=== PATIENT | male | born 1950 | race Caucasian/White ===

== ENCOUNTER 2017-02-07 05:40 | Emergency (ER) | payer OTHER ==
--- NOTE | 2017-02-07 06:09 | Emergency Department Record ---
History of Present Illness - General Chief Complaint: Fall Injury Stated Complaint: FALL Time Seen by Provider: 02/07/17 05:58 Source: Patient, EMS Mode of Arrival: EMS Limitations: No limitations - History of Present Illness Initial Comments: pt lost balance and fell hitting head and injuring l hand. 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 sided deficits Complaint: Fall Onset/Timin -: Minutes(s) Fall From: Standing When Fall Occurred: Just prior to arrival Fall Witnessed: Yes, by family Place Fall Occurred: Home Loss of Consciousness: None Prolonged Down Time?: No Symptoms Prior to Fall: None Location: Head Location - Extremities: Left: Hand Severity: Moderate Severity scale (1-10): 7 Quality: Aching Context: History of frequent falls, Tripped/slipped - [place] Coma Scale Eye Response: (4) Open spontaneously Motor Response: (6) Obeys commands Verbal Response: (5) Oriented [place] Total: 15 - Related Data Home Medications Medication Instructions Recorded Confirmed Last Taken Baclofen 10 mg PO TID 11/06/15 02/07/17 1 Day Ago Carvedilol [Coreg] 12.5 mg PO BID 11/06/15 02/07/17 1 Day Ago Furosemide [Lasix] 20 mg PO DAILY 11/06/15 02/07/17 1 Day Ago Melatonin 5 mg PO QHS 11/06/15 02/07/17 1 Day Ago Omeprazole 40 mg PO BID 11/06/15 02/07/17 1 Day Ago Simvastatin [Zocor] 40 mg PO QHS 11/06/15 02/07/17 1 Day Ago Trazodone HCl 100 mg PO QHS PRN 11/06/15 02/07/17 1 Day Ago Cholecalciferol (Vitamin D3) 1,000 udcap PO DAILY 12/22/15 02/07/17 1 Day Ago [Vitamin D] Multivitamin [Daily Multiple 1 tab PO DAILY 12/22/15 02/07/17 1 Day Ago Vitamin] Spironolactone [Aldactone] 25 mg PO DAILY 12/22/15 02/07/17 1 Day Ago Meclizine HCl [Antivert] 12.5 mg PO TID 06/30/16 02/07/17 1 Day Ago Enoxaparin Sodium [Lovenox] 150 mg SQ DAILY 01/28/17 02/07/17 1 Day Ago Allergies Allergy/AdvReac Type Severity Reaction Status Date / Time NO KNOWN DRUG ALLERGY Allergy HYPERSENSIT Uncoded 01/28/17 08:47 IVITY Travel Screening - Travel/Exposure Within Last 30 Days Have you traveled within the last 30 days?: No Review of Systems Reviewed: No additional complaints except as noted below Constitutional: Reports: As per HPI. Denies: Chills, Fever, Malaise, Night sweats, Weakness, Weight change Eyes: Reports: As per HPI. Denies: Eye discharge, Eye pain, Photophobia, Vision change ENT: Reports: As per HPI. Denies: Congestion, Dental pain, Ear pain, Epistaxis , Hearing loss, Throat pain Respiratory: Reports: As per HPI. Denies: Cough, Dyspnea, Hemoptysis, Stridor, Wheezes Cardiovascular: Reports: As per HPI. Denies: Arrhythmia, Chest pain, Dyspnea on exertion, Edema, Murmurs, Orthopnea, Palpitations, Paroxysmal nocturnal dyspnea, Rheumatic Fever, Syncope Endocrine: Reports: As per HPI. Denies: Fatigue, Heat or cold intolerance, Polydipsia, Polyuria Gastrointestinal: Reports: As per HPI. Denies: Abdominal pain, Constipation, Diarrhea, Hematemesis, Hematochezia, Melena, Nausea, Vomiting Genitourinary: Reports: As per HPI. Denies: Dysuria, Frequency, Hematuria, Incontinence, Retention, Testicular pain, Testicular mass, Urgency Musculoskeletal: Reports: As per HPI. Denies: Arthralgia, Back pain, Gout, Joint swelling, Myalgia, Neck pain Skin: Reports: As per HPI. Denies: Bruising, Change in color, Change in hair/ nails, Lesions, Pruritus, Rash Neurological: Reports: As per HPI. Denies: Abnormal gait, Confusion, Headache, Numbness, Paresthesias, Seizure, Tingling, Tremors, Vertigo, Weakness Psychiatric: Reports: As per HPI. Denies: Anxiety, Auditory hallucinations, Depression, Homicidal thoughts, Suicidal thoughts, Visual hallucinations Hematological/Lymphatic: Reports: As per HPI. 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 - GI Hx GI Disorders: Yes Hx GI Bleed: Yes (esophageal) Comment:: esopageal varicies - Hx Genitourinary Disorders: No - ENDOCRINE Hx Endocrine Disorders: No - MUSCULOSKELETAL Hx Musculoskeletal Disorders: No - PSYCH Hx Psych Problems: No - HEMATOLOGY/ONCOLOGY Hx Hematology/Oncology Disorders: No Family Medical History Any Significant Family History?: No Physical Exam - General General Appearance: Alert, Oriented x3, Cooperative, Mild distress - Head Head exam: Normal inspection Head exam detail: Abrasion, Contusion, Laceration - Eye Eye exam: Normal appearance, PERRL, EOMI Pupils: Normal accommodation - ENT ENT exam: Normal exam, Mucous membranes moist, Normal external ear exam, Normal orophraynx Ear exam: Normal external inspection. negative: External canal tenderness Nasal Exam: Normal inspection. negative: Discharge, Sinus tenderness Mouth exam: Normal external inspection, Tongue normal Teeth exam: Normal inspection. negative: Dental caries Throat exam: Normal inspection. negative: Tonsillar erythema, Tonsillar exudate - Neck Neck exam: Normal inspection, Full ROM. negative: Tenderness - Respiratory Respiratory exam: Normal lung sounds bilaterally. negative: Respiratory distress - Cardiovascular Cardiovascular Exam: Regular rate, Normal rhythm, Normal heart sounds - GI/Abdominal GI/Abdominal exam: Soft, Normal bowel sounds. negative: Tenderness - Rectal Rectal exam: Deferred - exam: Deferred - Extremities Extremities exam: Normal inspection, Normal capillary refill, Tenderness. negative: Full ROM Image of Full Body: 1 - tender w 2 small lacs 2 - skin tears, tender, swelling, ecchymosis - Back Back exam: Reports: Normal inspection, Full ROM. Denies: Muscle spasm, Rash noted, Tenderness - Neurological Neurological exam: Alert, CN II-XII intact, Oriented X3, Other (residual l sided deficits). negative: Normal gait - Psychiatric Psychiatric exam: Normal affect, Normal mood - Skin Skin exam: Dry, Intact, Normal color, Warm Course Vital Signs 02/07/17 05:44 Temperature 97.8 F Pulse Rate 67 Respiratory 18 Rate Blood Pressure 127/73 Pulse Ox 97 - Reevaluation(s) Reevaluation #1: 02/07/17 06:56 care being assumed by dr hernandez Medical Decision Making - Lab Data Result diagrams: 02/07/17 06:30 02/07/17 06:30 Disposition Forms: Patient Portal Access
[2017-02-07 07:01] LABS: EOS % 2.7 % (0-6); GRAN % 47.2 % (47-80); HEMATOCRIT 40.1 % (42.0-52.0); HEMOGLOBIN 14.3 gm/dl (14.0-18.0); LYMPH % 34.7 % (16-45); MEAN CELL VOLUME 102.3 fl (81-97); MEAN CORPUSCULAR HGB CONC 35.7 g/dl (32-36); MONO % 14.4 % (0-9); PLATELET COUNT 91 K/uL (130-400); RED BLOOD COUNT 3.92 M/uL (4.40-5.70); RED CELL DISTRIBUTION WIDTH 16.1 % (11.5-14.5); WHITE BLOOD COUNT W/O DIFF 6.2 K/uL (4.2-12.2)
[2017-02-07 07:02] LABS: MEAN CORPUSCULAR HEMOGLOBIN 36.4 pg (27-33)
--- NOTE | 2017-02-07 07:11 | Emergency Department Record ---
History of Present Illness - General Chief Complaint: Fall Injury Stated Complaint: FALL Time Seen by Provider: 02/07/17 05:58 Source: Patient, EMS, RN notes reviewed Mode of Arrival: EMS - History of Present Illness Initial Comments: report from Dr. Uribe and reviewed the chart and labs and CT scans and waiting for readings from radiologist. Examined patient and he said he fell and hit his head on a dresser and has two lacerations on the left side of forehead. No LOC and no vomiting and drinking Vodka last night. He had a previous stroke 5 years ago and has paralysis on the left side partial and able to stand with assistance. MD Complaint: Fall Onset/Timin -: Minutes(s) Fall From: Standing When Fall Occurred: Just prior to arrival Fall Witnessed: Yes, by family Place Fall Occurred: Home Loss of Consciousness: None Prolonged Down Time?: No Symptoms Prior to Fall: None Location: Head Location - Extremities: Left: Hand Severity: Moderate Severity scale (1-10): 7 Quality: Aching Context: History of frequent falls, Tripped/slipped - [place]y Coma Scale Eye Response: (4) Open spontaneously Motor Response: (6) Obeys commands Verbal Response: (5) Oriented [place] Total: 15 - Related Data Home Medications Medication Instructions Recorded Confirmed Last Taken Baclofen 10 mg PO TID 11/06/15 02/07/17 1 Day Ago Carvedilol [Coreg] 12.5 mg PO BID 11/06/15 02/07/17 1 Day Ago Furosemide [Lasix] 20 mg PO DAILY 11/06/15 02/07/17 1 Day Ago Melatonin 5 mg PO QHS 11/06/15 02/07/17 1 Day Ago Omeprazole 40 mg PO BID 11/06/15 02/07/17 1 Day Ago Simvastatin [Zocor] 40 mg PO QHS 11/06/15 02/07/17 1 Day Ago Trazodone HCl 100 mg PO QHS PRN 11/06/15 02/07/17 1 Day Ago Cholecalciferol (Vitamin D3) 1,000 udcap PO DAILY 12/22/15 02/07/17 1 Day Ago [Vitamin D] Multivitamin [Daily Multiple 1 tab PO DAILY 12/22/15 02/07/17 1 Day Ago Vitamin] Spironolactone [Aldactone] 25 mg PO DAILY 12/22/15 02/07/17 1 Day Ago Meclizine HCl [Antivert] 12.5 mg PO TID 06/30/16 02/07/17 1 Day Ago Enoxaparin Sodium [Lovenox] 150 mg SQ DAILY 01/28/17 02/07/17 1 Day Ago Allergies Allergy/AdvReac Type Severity Reaction Status Date / Time NO KNOWN DRUG ALLERGY Allergy HYPERSENSIT Uncoded 01/28/17 08:47 IVITY Travel Screening - Travel/Exposure Within Last 30 Days Have you traveled within the last 30 days?: No Review of Systems Constitutional: Reports: As per HPI. Denies: Chills, Fever, Malaise, Night sweats, Weakness, Weight change Eyes: Reports: As per HPI. Denies: Eye discharge, Eye pain, Photophobia, Vision change ENT: Reports: As per HPI. Denies: Congestion, Dental pain, Ear pain, Epistaxis , Hearing loss, Throat pain Respiratory: Reports: As per HPI. Denies: Cough, Dyspnea, Hemoptysis, Stridor, Wheezes Cardiovascular: Reports: As per HPI. Denies: Arrhythmia, Chest pain, Dyspnea on exertion, Edema, Murmurs, Orthopnea, Palpitations, Paroxysmal nocturnal dyspnea, Rheumatic Fever, Syncope Endocrine: Reports: As per HPI. Denies: Fatigue, Heat or cold intolerance, Polydipsia, Polyuria Gastrointestinal: Reports: As per HPI. Denies: Abdominal pain, Constipation, Diarrhea, Hematemesis, Hematochezia, Melena, Nausea, Vomiting Genitourinary: Reports: As per HPI. Denies: Dysuria, Frequency, Hematuria, Incontinence, Retention, Testicular pain, Testicular mass, Urgency Musculoskeletal: Reports: As per HPI, Neck pain. Denies: Arthralgia, Back pain , Gout, Joint swelling, Myalgia Skin: Reports: As per HPI, Other (two lacerations one is 5 cm and the other is 3 cm left forehead and scalp area). Denies: Bruising, Change in color, Change in hair/nails, Lesions, Pruritus, Rash Neurological: Reports: As per HPI. Denies: Abnormal gait, Confusion, Headache, Numbness, Paresthesias, Seizure, Tingling, Tremors, Vertigo, Weakness Psychiatric: Reports: As per HPI. Denies: Anxiety, Auditory hallucinations, Depression, Homicidal thoughts, Suicidal thoughts, Visual hallucinations Hematological/Lymphatic: Reports: As per HPI. 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 - GI Hx GI Disorders: Yes Hx GI Bleed: Yes (esophageal) Comment:: esopageal varicies - Hx Genitourinary Disorders: No - ENDOCRINE Hx Endocrine Disorders: No - MUSCULOSKELETAL Hx Musculoskeletal Disorders: No - PSYCH Hx Psych Problems: No - HEMATOLOGY/ONCOLOGY Hx Hematology/Oncology Disorders: No Family Medical History Any Significant Family History?: No Physical Exam - General General Appearance: Alert, Oriented x3, Cooperative, No acute distress, Other ( slight slurred speech and could be from the CVA or alcohol) Limitations: No limitations - Head Head exam: Normal inspection - Eye Eye exam: Normal appearance, PERRL Pupils: Normal accommodation - ENT ENT exam: Normal exam, Mucous membranes moist, Normal external ear exam, Normal orophraynx, TM's normal bilaterally Ear exam: Normal external inspection. negative: External canal tenderness Nasal Exam: Normal inspection. negative: Discharge, Sinus tenderness Mouth exam: Normal external inspection, Tongue normal Teeth exam: Normal inspection. negative: Dental caries Throat exam: Normal inspection. negative: Tonsillar erythema, Tonsillar exudate - Neck Neck exam: Normal inspection, Full ROM. negative: Tenderness - Respiratory Respiratory exam: Normal lung sounds bilaterally. negative: Respiratory distress - Cardiovascular Cardiovascular Exam: Regular rate, Normal rhythm, Normal heart sounds - GI/Abdominal GI/Abdominal exam: Soft, Normal bowel sounds. negative: Tenderness - Rectal Rectal exam: Deferred - exam: Deferred - Extremities Extremities exam: Normal inspection, Full ROM, Normal capillary refill. negative: Tenderness - Back Back exam: Reports: Normal inspection, Full ROM. Denies: Muscle spasm, Rash noted, Tenderness - Neurological Neurological exam: Abnormal gait (from his CVA), Alert, Motor sensory deficit ( old left side), Oriented X3, Reflexes normal - Psychiatric Psychiatric exam: Normal affect, Normal mood - Skin Skin exam: Dry, Intact, Normal color, Warm, Other (two lacerations left side of face) Course Vital Signs 02/07/17 05:44 Temperature 97.8 F Pulse Rate 67 Respiratory 18 Rate Blood Pressure 127/73 Pulse Ox 97 - Reevaluation(s) Reevaluation #1: laceration repair and 3 cm laceration repaired with 5 sutures and the 5 cm repaired with three sutures. cleaned with shurclens and irrigated anesthesized with 1% lidocaine with epi 02/07/17 08:18 Medical Decision Making - Data Complexity MDM Data: Labs Ordered and/or Reviewed (alcohol 0.078), X-Ray Ordered and/or Reviewed (CT neck neg, CT head neg, left hand xray neg and his injury is in the left parietal area of skull) - Lab Data Result diagrams: 02/07/17 06:30 02/07/17 06:30 Lab Results 02/07/17 Range/Units 06:30 WBC 6.2 (4.2-12.2) K/uL RBC 3.92 L (4.40-5.70) M/uL Hgb 14.3 (14.0-18.0) gm/dl Hct 40.1 L (42.0-52.0) % MCV 102.3 H (81-97) fl MCH 36.4 H (27-33) pg MCHC 35.7 (32-36) g/dl RDW 16.1 H (11.5-14.5) % Plt Count 91 L (130-400) K/uL MPV 13.0 H (7.4-10.4) fl Gran % 47.2 (47-80) % Lymphocytes % 34.7 (16-45) % Monocytes % 14.4 H (0-9) % Eosinophils % 2.7 (0-6) % Basophils % 1.0 (0-6) % Disposition Clinical Impression: Laceration of face Qualifiers: Encounter type: initial encounter Qualified Code(s): S01.81XA - Laceration without foreign body of other part of head, initial encounter Laceration of scalp Qualifiers: Encounter type: initial encounter Qualified Code(s): S01.01XA - Laceration without foreign body of scalp, initial encounter Head contusion Qualifiers: Encounter type: initial encounter Contusion of head detail: scalp Qualified Code(s): S00.03XA - Contusion of scalp, initial encounter Contusion, hand Qualifiers: Encounter type: initial encounter Laterality: left Qualified Code(s): S60.222A - Contusion of left hand, initial encounter Disposition: Home, Self-Care Condition: (1) Good Instructions: Minor Head Injury (ED), Laceration (ED) Additional Instructions: remove sutures in 7 days wound care Forms: Patient Portal Access Time of Disposition: 08:46
[2017-02-07 07:13] LABS: ALB/GLOB RATIO 0.8 (1.1-1.8); ALBUMIN 3.7 gm/dL (3.5-5.0); ALCOHOL 0.078 g/dL (0-0.010); ALKALINE PHOSPHATASE 260 U/L (38-126); ALT/SGPT 31 U/L (21-72); ANION GAP 8.5 (7-16); AST/SGOT 49 U/L (17-59); BILIRUBIN,TOTAL 2.02 mg/dL (0.2-1.3); BLOOD UREA NITROGEN 10 mg/dL (9-20); CARBON DIOXIDE 20.5 mmol/L (22-30); CREATININE 0.7 mg/dL (0.66-1.25); EST GLOMERULAR FILTRATION RATE > 60 ml/min; GLUCOSE,RANDOM 85 mg/dL (70-110); TOTAL PROTEIN 8.2 gm/dL (6.3-8.2)
[2017-02-07 07:14] LABS: INR 1.19; PARTIAL THROMBOPLASTIN TIME 39.2 SECONDS (24.5-39.1); PROTHROMBIN TIME (PATIENT) 13.5 SECONDS (9.5-12.1)
--- NOTE | 2017-02-08 15:12 | CT SCAN REPORT ---
EXAM: HEAD CT WITHOUT CONTRAST HISTORY: FALL, BLUNT TRAUMA, CONTUSION, HEMATOMA. HITTING RIGHT PARIETAL AREA ON EDGE OF DRESSER. NO LOSS OF CONSCIOUSNESS. TECHNIQUE: Contiguous axial images from the cerebral convexities to the foramen magnum were obtained without contrast. Comparison: Head CT 01/28/17. Encounter: Initial. FINDINGS: Moderate generalized atrophy of the brain. Encephalomalacia in the paramedian right frontal and parietal lobe consistent with remote infarct. Encephalomalacia involving the high left frontal cortex consistent with remote infarct. No acute intracranial hemorrhage, mass effect, or midline shift. No CT evidence of acute large territorial infarct. The ventricles and basal cisterns are preserved. Mild soft tissue swelling right frontal scalp. No fractures. The paranasal sinuses are unremarkable. IMPRESSION: 1. NO ACUTE INTRACRANIAL PROCESS. 2. 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 JOB NUMBER: [id number] MTDD
--- NOTE | 2017-02-09 07:55 | RADIOLOGY REPORT ---
EXAM: LEFT HAND, THREE VIEWS HISTORY: FALL, LACERATION PROXIMAL LEFT HAND. TECHNIQUE: Three views of the left hand were obtained. Comparison: Left hand radiograph 04/16/13. FINDINGS: Osteopenia. No acute fracture or radiodense foreign body. Moderate severe osteoarthritic change at the left first carpal metacarpal joint. Mild soft tissue swelling dorsal left hand. IMPRESSION: 1. NO ACUTE FRACTURE OR RADIODENSE FOREIGN BODY OF THE LEFT HAND. 2. OSTEOPENIA. 3. MODERATE TO SEVERE ARTHRITIC CHANGE LEFT FIRST CARPAL METACARPAL JOINT. JOB NUMBER: [id number] MTDD
--- NOTE | 2017-02-09 08:24 | CT SCAN REPORT ---
EXAM: CERVICAL SPINE CT WITH TWO DIMENSIONAL REFORMATS HISTORY: FELL FROM STANDING POSITION, HIT RIGHT PARIETAL AREA ON DRESSER, NECK PAIN. TECHNIQUE: Contiguous axial images from the skull base to the T2 level were obtained without contrast. Sagittal and coronal two dimensional reformatted images were obtained for better anatomic delineation. Comparison: CT of the cervical spine 01/28/17. Encounter: Initial. FINDINGS: Anatomic alignment of the cervical spine. The C1-C2 articulation appears appropriate and the odontoid is intact. No acute fracture or subluxation. Mild to moderate degenerative disk disease at C6-C7 manifested by disk space narrowing and small end plate osteophytes. Minimal disk disease at the remaining levels. No narrowing of the osseous central canal at any level. Facet and uncovertebral joint hypertrophy at multiple levels with neural foraminal stenosis most pronounced at C3-C4 where there is moderate bilateral neural foraminal stenosis. The soft tissues of the cervical region are unremarkable. Biapical emphysematous change as well as scarring within the lungs. IMPRESSION: 1. NO ACUTE FRACTURE OR SUBLUXATION OF THE CERVICAL SPINE. 2. MULTILEVEL DEGENERATIVE DISK DISEASE MOST PROMINENT AT C6-C7. 3. NEURAL FORAMINAL STENOSIS MOST PRONOUNCED AT C3-C4. JOB NUMBER: [id number] [facility]
== END 2017-02-07 09:09 | disposition home or self-care (01) ==
LOC: ER 05:40
DX: S01.01XA Laceration without foreign body of scalp, initial encounter (principal); S01.81XA Laceration without foreign body of other part of head, initial encounter; S60.222A Contusion of left hand, initial encounter; W01.190A Fall on same level from slipping, tripping and stumbling with subsequent striking against furniture, initial encounter; Y92.009 Unspecified place in unspecified non-institutional (private) residence as the place of occurrence of the external cause; I69.954 Hemiplegia and hemiparesis following unspecified cerebrovascular disease affecting left non-dominant side; I10 Essential (primary) hypertension; F17.200 Nicotine dependence, unspecified, uncomplicated; Z91.81 History of falling; Z79.899 Other long term (current) drug therapy
CPT/HCPCS: 12002; 12013; 70450; 72125; 80053; 80320; 85025; 85610; 85730; 99283; 99284

== ENCOUNTER 2017-02-14 10:22 | Emergency (ER) | payer OTHER ==
--- NOTE | 2017-02-14 11:09 | Emergency Department Record ---
History of Present Illness - General Chief Complaint: Suture removal Stated Complaint: SUTURE REMOVAL Time Seen by Provider: 02/14/17 10:25 Source: Patient - History of Present Illness Initial Comments: two lacerations on the head are healing nicely and no signs of infection. The left hand is still swollen and very bruised and I am concerned it may be getting infected. reviewed xray and neg for fracture or FB Onset/Timin -: Week(s) Initial Visit For: Laceration Returns Today for: Staple/stitch removal, Wound recheck Symptoms Since Prior Visit: Worsening swelling Associated Symptoms: None - Related Data Home Medications Medication Instructions Recorded Confirmed Last Taken Baclofen 10 mg PO TID 11/06/15 02/14/17 1 Day Ago Carvedilol [Coreg] 12.5 mg PO BID 11/06/15 02/14/17 1 Day Ago Furosemide [Lasix] 20 mg PO DAILY 11/06/15 02/14/17 1 Day Ago Melatonin 5 mg PO QHS 11/06/15 02/14/17 1 Day Ago Omeprazole 40 mg PO BID 11/06/15 02/14/17 1 Day Ago Simvastatin [Zocor] 40 mg PO QHS 11/06/15 02/14/17 1 Day Ago Trazodone HCl 100 mg PO QHS PRN 11/06/15 02/14/17 1 Day Ago Cholecalciferol (Vitamin D3) 1,000 udcap PO DAILY 12/22/15 02/14/17 1 Day Ago [Vitamin D] Multivitamin [Daily Multiple 1 tab PO DAILY 12/22/15 02/14/17 1 Day Ago Vitamin] Spironolactone [Aldactone] 25 mg PO DAILY 12/22/15 02/14/17 1 Day Ago Meclizine HCl [Antivert] 12.5 mg PO TID 06/30/16 02/14/17 1 Day Ago Enoxaparin Sodium [Lovenox] 150 mg SQ DAILY 01/28/17 02/14/17 1 Day Ago Previous Rx's Medication Instructions Recorded Amoxicillin/Potassium Clav 1 tab PO TID #30 tab 02/14/17 [Augmentin 500Mg/125Mg] Allergies Allergy/AdvReac Type Severity Reaction Status Date / Time NO KNOWN DRUG ALLERGY Allergy HYPERSENSIT Uncoded 01/28/17 08:47 [facility] Travel Screening - Travel/Exposure Within Last 30 Days Have you traveled within the last 30 days?: No Review of Systems Reviewed: No additional complaints except as noted below Constitutional: Reports: As per HPI. Denies: Chills, Fever, Malaise, Night sweats, Weakness, Weight change Eyes: Reports: As per HPI. Denies: Eye discharge, Eye pain, Photophobia, Vision change ENT: Reports: As per HPI. Denies: Congestion, Dental pain, Ear pain, Epistaxis , Hearing loss, Throat pain Respiratory: Reports: As per HPI. Denies: Cough, Dyspnea, Hemoptysis, Stridor, Wheezes Cardiovascular: Reports: As per HPI. Denies: Arrhythmia, Chest pain, Dyspnea on exertion, Edema, Murmurs, Orthopnea, Palpitations, Paroxysmal nocturnal dyspnea, Rheumatic Fever, Syncope Endocrine: Reports: As per HPI. Denies: Fatigue, Heat or cold intolerance, Polydipsia, Polyuria Gastrointestinal: Reports: As per HPI. Denies: Abdominal pain, Constipation, Diarrhea, Hematemesis, Hematochezia, Melena, Nausea, Vomiting Genitourinary: Reports: As per HPI. Denies: Dysuria, Frequency, Hematuria, Incontinence, Retention, Testicular pain, Testicular mass, Urgency Musculoskeletal: Reports: As per HPI. Denies: Arthralgia, Back pain, Gout, Joint swelling, Myalgia, Neck pain Skin: Reports: As per HPI. Denies: Bruising, Change in color, Change in hair/ nails, Lesions, Pruritus, Rash Neurological: Reports: As per HPI. Denies: Abnormal gait, Confusion, Headache, Numbness, Paresthesias, Seizure, Tingling, Tremors, Vertigo, Weakness Psychiatric: Reports: As per HPI. Denies: Anxiety, Auditory hallucinations, Depression, Homicidal thoughts, Suicidal thoughts, Visual hallucinations Hematological/Lymphatic: Reports: As per HPI. 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 - GI Hx GI Disorders: Yes Hx GI Bleed: Yes (esophageal) Comment:: esopageal varicies - Hx Genitourinary Disorders: No - ENDOCRINE Hx Endocrine Disorders: No - MUSCULOSKELETAL Hx Musculoskeletal Disorders: No - PSYCH Hx Psych Problems: No - HEMATOLOGY/ONCOLOGY Hx Hematology/Oncology Disorders: No Family Medical History Any Significant Family History?: No Physical Exam - General General Appearance: Alert, Oriented x3, Cooperative, No acute distress - Head Head exam: Normal inspection - Eye Eye exam: Normal appearance, PERRL Pupils: Normal accommodation - ENT ENT exam: Normal exam, Mucous membranes moist, Normal external ear exam, Normal orophraynx, TM's normal bilaterally Ear exam: Normal external inspection. negative: External canal tenderness Nasal Exam: Normal inspection. negative: Discharge, Sinus tenderness Mouth exam: Normal external inspection, Tongue normal Teeth exam: Normal inspection. negative: Dental caries Throat exam: Normal inspection. negative: Tonsillar erythema, Tonsillar exudate - Neck Neck exam: Normal inspection, Full ROM. negative: Tenderness - Respiratory Respiratory exam: Normal lung sounds bilaterally. negative: Respiratory distress - Cardiovascular Cardiovascular Exam: Regular rate, Normal rhythm, Normal heart sounds - GI/Abdominal GI/Abdominal exam: Soft, Normal bowel sounds. negative: Tenderness - Rectal Rectal exam: Deferred - exam: Deferred - Extremities Extremities exam: Normal inspection, Full ROM, Normal capillary refill. negative: Tenderness - Back Back exam: Reports: Normal inspection, Full ROM. Denies: Muscle spasm, Rash noted, Tenderness - Neurological Neurological exam: Alert, Normal gait, Oriented X3, Reflexes normal - Psychiatric Psychiatric exam: Normal affect, Normal mood - Skin Skin exam: Dry, Intact, Normal color, Warm Course Vital Signs 02/14/17 10:32 Temperature 97.6 F Pulse Rate [ 97 H Pulse Ox Probe] Respiratory 20 Rate Blood Pressure 132/66 [Left Arm] Pulse Ox 97 sutures removed from his head. Called Dr. Badillo and he wants to see today or tomorrow. Disposition Clinical Impression: Hematoma Contusion, hand Qualifiers: Encounter type: initial encounter Laterality: left Qualified Code(s): S60.222A - Contusion of left hand, initial encounter Disposition: Home, Self-Care Condition: (1) Good Instructions: Suture Removal (ED) Additional Instructions: CAll Dr. Fitzgerald's to be seen today or tomorrow Prescriptions: Amoxicillin/Potassium Clav [Augmentin 500Mg/125Mg] 1 tab PO TID #30 tab Forms: Patient Portal Access Time of Disposition: 11:16
== END 2017-02-14 11:35 | disposition home or self-care (01) ==
LOC: ER 10:22
DX: Z48.02 Encounter for removal of sutures (principal); S60.222A Contusion of left hand, initial encounter; W01.190A Fall on same level from slipping, tripping and stumbling with subsequent striking against furniture, initial encounter; Y92.009 Unspecified place in unspecified non-institutional (private) residence as the place of occurrence of the external cause

== ENCOUNTER 2017-11-19 10:48 | Emergency (ER) | payer MEDICARE, OTHER ==
[2017-11-19] MEDS ORDERED: HYDROCODONE/APAP 5/325MG TABLET PO ONE (12:49)
--- NOTE | 2017-11-19 13:42 | Emergency Department Record ---
History of Present Illness - General Chief complaint: Pain Stated complaint: LEFT SHOULDER PAIN Time Seen by Provider: 11/19/17 12:46 Source: Patient Mode of Arrival: Wheelchair Limitations: No limitations - History of Present Illness Initial comments: pt fell on [place] injuring his l arm, shoulder. he has been wearing a sling. arm has contd to hurt. 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 MD Complaint: Extremity pain, Joint pain Onset/Timin -: Week(s) Location: Left, Shoulder History of Same: Yes Radiation: Proximal Severity scale (1-10): 10 Quality: Aching, Sharp Consistency: Constant Improves with: Immobilization Worsens with: Exertion, Palpation Associated Symptoms: Denies other symptoms - Related Data Home Medications Medication Instructions Recorded Confirmed Last Taken Rifaximin [Xifaxan] 550 mg PO BID 11/19/17 11/19/17 1 Day Ago ~11/18/17 Previous Rx's Medication Instructions Recorded Hydrocodone/Acetaminophen [Disputanta 1 each PO QID #7 tablet 11/19/17 5-325 Tablet] Allergies Allergy/AdvReac Type Severity Reaction Status Date / Time NO KNOWN DRUG ALLERGY Allergy HYPERSENSIT Uncoded 11/19/17 11:53 [facility] Travel Screening - Travel/Exposure Within Last 30 Days Have you traveled within the last 30 days?: No - Travel/Exposure Within Last Year Have you traveled outside the [place] in the last year?: No - Additonal Travel Details Have you been exposed to anyone with a communicable illness?: No - Travel Symptoms Symptom Screening: None Review of Systems Reviewed: No additional complaints except as noted below Constitutional: Reports: As per HPI. Denies: Chills, Fever, Malaise, Night sweats, Weakness, Weight change Eyes: Reports: As per HPI. Denies: Eye discharge, Eye pain, Photophobia, Vision change ENT: Reports: As per HPI. Denies: Congestion, Dental pain, Ear pain, Epistaxis , Hearing loss, Throat pain Respiratory: Reports: As per HPI. Denies: Cough, Dyspnea, Hemoptysis, Stridor, Wheezes Cardiovascular: Reports: As per HPI. Denies: Arrhythmia, Chest pain, Dyspnea on exertion, Edema, Murmurs, Orthopnea, Palpitations, Paroxysmal nocturnal dyspnea, Rheumatic Fever, Syncope Endocrine: Reports: As per HPI. Denies: Fatigue, Heat or cold intolerance, Polydipsia, Polyuria Gastrointestinal: Reports: As per HPI. Denies: Abdominal pain, Constipation, Diarrhea, Hematemesis, Hematochezia, Melena, Nausea, Vomiting Genitourinary: Reports: As per HPI. Denies: Dysuria, Frequency, Hematuria, Incontinence, Retention, Testicular pain, Testicular mass, Urgency Musculoskeletal: Reports: As per HPI. Denies: Arthralgia, Back pain, Gout, Joint swelling, Myalgia, Neck pain Skin: Reports: As per HPI. Denies: Bruising, Change in color, Change in hair/ nails, Lesions, Pruritus, Rash Neurological: Reports: As per HPI. Denies: Abnormal gait, Confusion, Headache, Numbness, Paresthesias, Seizure, Tingling, Tremors, Vertigo, Weakness Psychiatric: Reports: As per HPI. Denies: Anxiety, Auditory hallucinations, Depression, Homicidal thoughts, Suicidal thoughts, Visual hallucinations Hematological/Lymphatic: Reports: As per HPI. 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 - GI Hx GI Disorders: Yes Hx GI Bleed: Yes (esophageal) Comment:: esopageal varicies - Hx Genitourinary Disorders: No - ENDOCRINE Hx Endocrine Disorders: No - MUSCULOSKELETAL Hx Musculoskeletal Disorders: No - PSYCH Hx Psych Problems: No - HEMATOLOGY/ONCOLOGY Hx Hematology/Oncology Disorders: No Family Medical History Any Significant Family History?: Yes Physical Exam - General General Appearance: Alert, Oriented x3, Cooperative, Mild distress - Head Head exam: Normal inspection - Eye Eye exam: Normal appearance, PERRL, EOMI Pupils: Normal accommodation - ENT ENT exam: Normal exam, Mucous membranes moist, Normal external ear exam, Normal orophraynx Ear exam: Normal external inspection. negative: External canal tenderness Nasal Exam: Normal inspection. negative: Discharge, Sinus tenderness Mouth exam: Normal external inspection, Tongue normal Teeth exam: Normal inspection. negative: Dental caries Throat exam: Normal inspection. negative: Tonsillar erythema, Tonsillar exudate - Neck Neck exam: Normal inspection, Full ROM. negative: Tenderness - Respiratory Respiratory exam: Normal lung sounds bilaterally. negative: Respiratory distress - Cardiovascular Cardiovascular Exam: Regular rate, Normal rhythm, Normal heart sounds - GI/Abdominal GI/Abdominal exam: Soft, Normal bowel sounds. negative: Tenderness - Rectal Rectal exam: Deferred - exam: Deferred - Extremities Extremities exam: Normal inspection, Full ROM, Normal capillary refill. negative: Tenderness - Back Back exam: Reports: Normal inspection, Full ROM. Denies: Muscle spasm, Rash noted, Tenderness - Neurological Neurological exam: Alert, CN II-XII intact, Normal gait, Oriented X3 - Psychiatric Psychiatric exam: Normal affect, Normal mood - Skin Skin exam: Dry, Intact, Normal color, Warm Course Vital Signs 11/19/17 11:43 Temperature 98.0 F Pulse Rate 62 Respiratory 16 Rate Blood Pressure 148/69 Pulse Ox 97 Disposition Disposition: Discharge Clinical Impression: Shoulder contusion Qualifiers: Encounter type: initial encounter Laterality: left Qualified Code(s): S40.012A - Contusion of left shoulder, initial encounter Disposition: Home, Self-Care Condition: (1) Good Instructions: Contusion in Adults (ED) Additional Instructions: follow up with family doctor. return sooner if worse. ice to shoulder. Prescriptions: Hydrocodone/Acetaminophen [Disputanta 5-325 Tablet] 1 each PO QID #7 tablet Forms: Patient Portal Access Quality - Quality Measures Quality Measures: N/A - Blood Pressure Screening Does Patient Have Any of the Following: No Blood Pressure Classification: Hypertensive Reading Systolic Measurement: 148 Diastolic Measurement: 69 Screening for High Blood Pressure: < First Hypertensive BP, F/U Documented > [ [id number]] First Hypertensive Follow-up Interventions: Follow-up with rescreen GT 1 day and LT 4 weeks.
--- NOTE | 2017-11-20 08:03 | RADIOLOGY REPORT ---
EXAM: LEFT SHOULDER HISTORY: FELL ONE WEEK AGO. PERSISTENT LEFT SHOULDER PAIN. TECHNIQUE: Four views of the left shoulder were obtained. Comparison: 04/16/13. FINDINGS: The bones are osteopenic, but appear intact. A stable mixed lytic and sclerotic area is present within the humeral head. Small marginal osteophytes are present at the glenohumeral joint. Mild arthritic changes are also present at the acromioclavicular joint. There is no acute fracture, dislocation, or destructive process. IMPRESSION: 1. DIFFUSE OSTEOPENIA AND MILD ARTHRITIC CHANGES. 2. NO ACUTE LEFT SHOULDER PATHOLOGY. JOB NUMBER: [id number] MTDD
--- NOTE | 2017-11-20 08:06 | RADIOLOGY REPORT ---
EXAM: LEFT HUMERUS HISTORY: LEFT SHOULDER AND ARM PAIN WITH LIMITED RANGE OF MOTION. HISTORY OF FALL ONE WEEK AGO. TECHNIQUE: AP and lateral views of the left humerus were obtained. Comparison: Left shoulder series from the same date. FINDINGS: The bones are diffusely osteopenic. There is no visible acute fracture or dislocation. There is no elbow effusion. Arthritic changes are present within the left shoulder. IMPRESSION: NO ACUTE LEFT HUMERUS PATHOLOGY. JOB NUMBER: [id number] [facility]
== END 2017-11-19 14:22 | disposition home or self-care (01) ==
LOC: ER 10:48
DX: S40.012A Contusion of left shoulder, initial encounter (principal); I69.954 Hemiplegia and hemiparesis following unspecified cerebrovascular disease affecting left non-dominant side; W19.XXXA Unspecified fall, initial encounter; I10 Essential (primary) hypertension; F17.210 Nicotine dependence, cigarettes, uncomplicated
CPT/HCPCS: 99283